=== PATIENT | female | born 1980 | race Caucasian/White ===

== ENCOUNTER 2020-10-07 20:04 | Emergency (ER) | payer SELFPAY ==
[2020-10-07 21:33] LABS: Absolute Lymphocytes (CBC) 1.8 K/uL (0.7-4.9); Basophils % 0.9 % (0-1.3); Hematocrit 39.8 % (36.0-45.0); Lymphocytes % 15.9 % (15.3-44.8); MPV 9.7 fL (7.6-11.3); RBC Red Blood Cell Count 4.63 M/uL (3.86-4.86)
[2020-10-07 21:34] LABS: Protime INR 1.01
[2020-10-07] MEDS ORDERED: NA CHLORIDE 0.9% 0 ML ONE (21:45)
[2020-10-07] MEDS ORDERED: LORazepam 2 MG/ML VIAL ONE (21:45)
[2020-10-07 21:49] LABS: Urine Blood NEGATIVE (NEG); Urine Glucose NEGATIVE (NEG); Urine Protein NEGATIVE (NEG); Urine Specific Gravity >1.030 (1.005-1.030)
[2020-10-07 22:01] LABS: ALT/SGPT 51 U/L (12-78); AST/SGOT 20 U/L (15-37); Albumin 3.5 g/dL (3.4-5.0); Alkaline Phosphatase 45 U/L (45-117); BUN Blood Urea Nitrogen 8 mg/dL (7-18); Bicarbonate 23 mmol/L (21-32); Bilirubin Direct < 0.1 mg/dL (0-0.2); Bilirubin Total 0.1 mg/dL (0.2-1.0); Glucose Level 97 mg/dL (74-106); Magnesium 2.2 mg/dL (1.8-2.4); NT PRO-BNP 87 pg/mL (<125); Potassium 3.8 mmol/L (3.5-5.1); Protein, Total 7.2 g/dL (6.4-8.2); Sodium Level 143 mmol/L (136-145); Troponin (Emerg Dept Use Only) < 0.02 ng/mL (0.0-0.045)
--- NOTE | 2020-10-07 22:26 | EDPHYS ---
Physician Documentation [facility] Name: Padmini Narayanan Age: 39 yrs Sex: Female : 1980 Arrival Date: 10/07/2020 Time: 20:05 Bed 15 Private MD: ED Physician Lester Angelo HPI: 10/07 22:24 This 39 yrs old Female presents to ER via Ambulatory with complaints of Chest ma2 Pain, Irregular Heart Beat. 22:24 The patient or guardian reports chest pain that is located primarily in the left ma2 breast. Associated signs and symptoms: Pertinent negatives: cough, headache, lower extremity swelling, lightheadedness. Duration: The patient or guardian reports a single episode. Severity of pain: At its worst the pain was very mild in the emergency department the pain has resolved. The patient has experienced a previous episode. Historical: - Allergies: 20:22 No Known Allergies; ll1 - PMHx: 20:22 cardiomyopathy; toxemia; Hypertension; ll1 - PSHx: 20:22 Cholecystectomy; ; ll1 - Immunization history:: Flu vaccine is not up to date. - Social history:: Smoking status: Patient denies any tobacco usage or history of. Patient/guardian denies using alcohol, street drugs, The patient lives with family. - Family history:: not pertinent. ROS: 22:24 Constitutional: Negative for fever, chills, and weight loss. ma2 22:24 All other systems are negative. Exam: 22:24 Constitutional: This is a well developed, well nourished patient who is awake, alert, ma2 and in no acute distress. Head/Face: Normocephalic, atraumatic. Eyes: Pupils equal round and reactive to light, extra-ocular motions intact. Lids and lashes normal. Conjunctiva and sclera are non-icteric and not injected. Cornea within normal limits. Periorbital areas with no swelling, redness, or edema. ENT: Nares patent. No nasal discharge, no septal abnormalities noted. Tympanic membranes are normal and external auditory canals are clear. Oropharynx with no redness, swelling, or masses, exudates, or evidence of obstruction, uvula midline. Mucous membranes moist. Neck: Trachea midline, no thyromegaly or masses palpated, and no cervical lymphadenopathy. Supple, full range of motion without nuchal rigidity, or vertebral point tenderness. No Meningismus. Chest/axilla: Normal chest wall appearance and motion. Nontender with no deformity. No lesions are appreciated. Cardiovascular: Regular rate and rhythm with a normal S1 and S2. No gallops, murmurs, or rubs. Normal PMI, no JVD. No pulse deficits. Respiratory: Lungs have equal breath sounds bilaterally, clear to auscultation and percussion. No rales, rhonchi or wheezes noted. No increased work of breathing, no retractions or nasal flaring. Abdomen/GI: Soft, non-tender, with normal bowel sounds. No distension or tympany. No guarding or rebound. No evidence of tenderness throughout. Back: No spinal tenderness. No costovertebral tenderness. Full range of motion. Skin: Warm, dry with normal turgor. Normal color with no rashes, no lesions, and no evidence of cellulitis. MS/ Extremity: Pulses equal, no cyanosis. Neurovascular intact. Full, normal range of motion. Neuro: Awake and alert, GCS 15, oriented to person, place, time, and situation. Cranial nerves II-XII grossly intact. Motor strength 5/5 in all extremities. Sensory grossly intact. Cerebellar exam normal. Normal gait. 22:26 Cardiovascular: Regular rate and rhythm with a normal S1 and S2. No gallops, murmurs, ma2 or rubs. Normal PMI, no JVD. No pulse deficits. chest wall pain is reproducible on exam, worse with moveing and twisting and breathing Vital Signs: 20:22 BP 131 / 95; Pulse 110; Resp 17; Temp 98.6; Pulse Ox 100% ; Weight 68.04 kg; Height 4 ll1 ft. 11 in. (149.86 cm); Pain 0/10; 22:50 BP 145 / 78; Pulse 94; Resp 16; Pulse Ox 96% on R/A; jb4 20:22 Body Mass Index 30.30 (68.04 kg, 149.86 cm) ll1 MDM: 20:58 Patient medically screened. ma2 22:24 Differential diagnosis: anxiety, chest wall pain, esophagitis, gastritis, ma2 gastroesophageal reflux disease (GERD). ANNA Risk Score: not applicable. Data reviewed: vital signs, nurses notes. Data reviewed: EMS record, long-term records. Counseling: I had a detailed discussion with the patient and/or guardian regarding: the historical points, exam findings, and any diagnostic results supporting the discharge/admit diagnosis, the presence of at least one elevated blood pressure reading (>120/80) during this emergency department visit, the need for outpatient follow up, patient declined medication in er . 10/07 20:59 Order name: Urine Dipstick--Ancillary (enter results); Complete Time: 21:58 10/07 20:59 Order name: Urine --Ancillary (enter results); Complete Time: 21:58 10/07 20:59 Order name: Basic Metabolic Panel; Complete Time: 22:11 [facility] 10/07 20:59 Order name: CBC with Diff; Complete Time: 21:58 [facility] 10/07 20:59 Order name: LFT's; Complete Time: 22:11 [facility] 10/07 20:59 Order name: Magnesium; Complete Time: 22:11 [facility] 10/07 20:27 Order name: EKG; Complete Time: 20:28 10/07 20:59 Order name: NT PRO-BNP; Complete Time: 22:11 id2 10/07 20:59 Order name: PT-INR; Complete Time: 21:58 [facility] 10/07 20:59 Order name: Troponin (emerg Dept Use Only); Complete Time: 22:11 id2 10/07 20:59 Order name: XRAY Chest (1 view) [facility] 10/07 20:59 Order name: EKG - Nurse/Tech; Complete Time: 21:14 [facility] 10/07 20:59 Order name: IV Saline Lock; Complete Time: 21:13 [facility] 10/07 20:59 Order name: Labs collected and sent; Complete Time: 21:13 id2 10/07 20:59 Order name: O2 Per Protocol; Complete Time: 21:13 [facility] 10/07 20:59 Order name: O2 Sat Monitoring; Complete Time: 21:13 ma2 Administered Medications: 21:49 Not Given (Patient Refused): Ativan 1 mg IVP once jb4 21:49 Not Given (Patient Refused): NS 0.9% 1000 ml IV at 1 bolus Per protocol; 1000 mL bolus jb4 Disposition: 10/07/20 22:25 Discharged to Home. Impression: Chest pain on breathing. - Condition is Stable. - Discharge Instructions: Chest Wall Pain. - Prescriptions for Diclofenac Sodium 75 mg Oral Tablet Sustained Release - take 1 tablet by ORAL route 2 times per day; 30 tablet. - Medication Reconciliation Form, Thank You Letter, Antibiotic Education, Prescription Opioid Use form. - Follow up: Private Physician; When: Tomorrow; Reason: Continuance of care. Signatures: Dispatcher [employer] [facility] Joseph Connolly RN RN jb4 Lester Angelo MD MD ma2 Nell Sheehan RN RN ll1 Corrections: (The following items were deleted from the chart) 22:34 21:14 CORONAVIRUS+MR.LAB.BRZ ordered. [facility] 22:52 22:25 10/07/2020 22:25 Discharged to Home. Impression: Chest pain on breathing. jb4 Condition is Stable. Forms are Medication Reconciliation Form, Thank You Letter, Antibiotic Education, Prescription Opioid Use. Follow up: Private Physician; When: Tomorrow; Reason: Continuance of care. ma2
--- NOTE | 2020-10-07 22:26 | ER ---
Nurse's Notes [facility] Name: Padmini Narayanan Age: 39 yrs Sex: Female : 1980 Arrival Date: 10/07/2020 Time: 20:05 Bed 15 Private MD: Diagnosis: Chest pain on breathing Presentation: 10/07 20:22 Chief complaint: Patient states: CP with palpitations for 1 days off/on. Worried about ll1 her cardiomyopathy history. Coronavirus screen: Client denies travel out of the [place] in the last 14 days. At this time, the client does not indicate any symptoms associated with coronavirus-19. Ebola Screen: Patient denies travel to an Ebola-affected area in the 21 days before illness onset. Initial Sepsis Screen: Does the patient meet any 2 criteria? HR > 90 bpm. No. Patient's initial sepsis screen is negative. Does the patient have a suspected source of infection? No. Patient's initial sepsis screen is negative. Risk Assessment: Do you want to hurt yourself or someone else? Patient reports no desire to harm self or others. Onset of symptoms was October 07, 2020. 20:22 Method Of Arrival: Ambulatory ll1 20:22 Acuity: [id number] 3 ll1 Historical: - Allergies: 20:22 No Known Allergies; ll1 - PMHx: 20:22 cardiomyopathy; toxemia; Hypertension; ll1 - PSHx: 20:22 Cholecystectomy; ; ll1 - Immunization history:: Flu vaccine is not up to date. - Social history:: Smoking status: Patient denies any tobacco usage or history of. Patient/guardian denies using alcohol, street drugs, The patient lives with family. - Family history:: not pertinent. Screenin:00 Abuse screen: Denies threats or abuse. Nutritional screening: No deficits noted. jb4 Tuberculosis screening: No symptoms or risk factors identified. Fall Risk None identified. Assessment: 21:00 General: Appears in no apparent distress. comfortable, Behavior is calm, cooperative. jb4 Pain: Complains of pain in chest Pain does not radiate. Pain currently is 0 out of 10 on a pain scale. Quality of pain is described as sharp, Pain began gradually, Is intermittent. Neuro: Level of Consciousness is awake, alert, obeys commands. Cardiovascular: Patient's skin is warm and dry. Respiratory: Airway is patent Respiratory effort is even, unlabored, Respiratory pattern is regular, symmetrical. GI: No signs and/or symptoms were reported involving the gastrointestinal system. : No signs and/or symptoms were reported regarding the genitourinary system. EENT: No signs and/or symptoms were reported regarding the EENT system. Derm: Skin is intact, Skin is pink, warm \T\ dry. Musculoskeletal: Circulation, motion, and sensation intact. Range of motion: intact in all extremities. 22:50 Reassessment: Patient appears in no apparent distress at this time. Patient and/or jb4 family updated on plan of care and expected duration. Pain level reassessed. Patient is alert, oriented x 3, equal unlabored respirations, skin warm/dry/pink. Vital Signs: 20:22 BP 131 / 95; Pulse 110; Resp 17; Temp 98.6; Pulse Ox 100% ; Weight 68.04 kg; Height 4 ll1 ft. 11 in. (149.86 cm); Pain 0/10; 22:50 BP 145 / 78; Pulse 94; Resp 16; Pulse Ox 96% on R/A; jb4 20:22 Body Mass Index 30.30 (68.04 kg, 149.86 cm) ll1 ED Course: 20:05 Patient arrived in ED. rg4 20:21 Arm band placed on. EKG completed in triage. Results shown to MD. ll1 20:21 EKG done, by ED staff, reviewed by Lester Angelo MD. jp3 20:24 Triage completed. ll1 20:58 Lester Angelo MD is Attending Physician. ma2 21:00 Patient has correct armband on for positive identification. Placed in gown. Bed in low jb4 position. Call light in reach. Side rails up X 1. Pulse ox on. NIBP on. 21:08 Initial lab(s) drawn, by me, sent to lab. Inserted saline lock: 20 gauge in right jp3 antecubital area, using aseptic technique. Blood collected. Patient maintains SpO2 saturation greater than 95% on room air. 21:22 Joseph Connolly, RN is Primary Nurse. jb4 21:50 XRAY Chest (1 view) In Process Unspecified. EDMS 22:51 No provider procedures requiring assistance completed. IV discontinued, intact, jb4 bleeding controlled, No redness/swelling at site. Pressure dressing applied. Administered Medications: 21:49 Not Given (Patient Refused): Ativan 1 mg IVP once jb4 :49 Not Given (Patient Refused): NS 0.9% 1000 ml IV at 1 bolus Per protocol; 1000 mL bolus jb4 Outcome: 22:25 Discharge ordered by . rut 22:51 Discharged to home ambulatory. jb4 22:51 Condition: stable 22:51 Discharge instructions given to patient, Instructed on discharge instructions, follow up and referral plans. medication usage, Demonstrated understanding of instructions, follow-up care, medications, Prescriptions given X 1. 22:52 Patient left the ED. jb4 Signatures: Dispatcher [employer] Susie Ceja rg4 Joseph Connolly, RN RN jb4 Lester Angelo MD MD ma2 John Hendricks jp3 Nell Sheehan RN RN ll1
--- NOTE | 2020-10-07 22:46 | RAD REPORT ---
EXAM DESCRIPTION: [place] Single View10/07/2020 9:50 pm CLINICAL HISTORY: Chest pain COMPARISON: none FINDINGS: The lungs appear clear of acute infiltrate. The heart is normal size IMPRESSION: No acute abnormalities displayed
[2020-10-07 23:01] VITALS: TEMP 98.6
[2020-10-07 23:02] VITALS: BP 145/78; O2SAT 96
== END 2020-10-07 22:52 | disposition home or self-care (01) ==
LOC: ER 20:04
DX: R07.1 Chest pain on breathing (principal); I10 Essential (primary) hypertension; I42.9 Cardiomyopathy, unspecified
CPT/HCPCS: 36415; 71045; 80048; 80076; 81003; 81025; 83735; 83880; 84484; 85025; 85610; 93005; 99284; J7030